=== PATIENT | female | born 1960 | race African-American/Black ===

== ENCOUNTER 2017-04-15 13:15 | Emergency (ER) | payer OTHER ==
[~2017-04-15] VITALS: Ht 167.6 cm; Wt 120.0 kg
[2017-04-15 13:19] VITALS: BP 198/116; PULSE 86; RESP 14; TEMP 98.8; O2SAT 98
--- NOTE | 2017-04-15 14:05 | RADRPT ---
EXAM DATE/TIME: 04/15/2017 13:56 [facility] COMPARISON: No previous studies available for comparison. INDICATIONS : Right wrist pain, fell MEDICAL HISTORY : None. SURGICAL HISTORY : None. ENCOUNTER: Initial ACUITY: 1 day PAIN SCORE: 10/10 LOCATION: Right Wrist FINDINGS: 3 views of the right wrist reveal an acute comminuted fracture involving the distal radial metaphysis . There is radial and dorsal displacement of the distal fracture fragment and carpus. The carpus guy ins in contact with the radial articular surface. The ulna is intact. Dorsal soft tissue swelling not ed. CONCLUSION: Acute distal radial fracture as detailed above. Abran Izquierdo Jr., MD on April 15, 2017 at 14:01 Board Certified Radiologist. This report was verified electronically.
--- NOTE | 2017-04-15 14:40 | PD ---
HPI Chief Complaint: Injury Time Seen by Provider: 14:17 Travel History International Travel<30 days: No Contact w/Intl Traveler<30days: No Traveled to known affect area: No History of Present Illness HPI 57 year old female presents after suffering a ground level fall. She states that she was folding up and air mattress when she lost her balance and fell backwards onto her right hand. She felt immediate pain and had swelling. She proceeded to ice and elevate it and came to the ED. She denies hitting her head or loss of consciousness. She had no chest pain or palpitations preceding the incident. PFSH Past Medical History Medical History: Denies Significant Hx ?: Not Past Surgical History Narrative Surgical Chest surgery Social History Tobacco Use: No Allergies-Medications (Allergen,Severity, Reaction): Coded Allergies: No Known Allergies (Unverified , 04/15/17) Reported Meds & Prescriptions Reported Meds & Active Scripts Active Warba (Hydrocodone-Acetaminophen) 5 Mg-325 Mg Tab 1 Tab PO Q6H PRN Review of Systems Except as stated in HPI: all other systems reviewed are Neg Eyes: No: Diploplia, Blurred Vision HENT: No: Headaches, Vertigo, Lightheadedness Cardiovascular: No: Chest Pain or Discomfort, Palpitations Respiratory: No: Shortness of Breath Gastrointestinal: No: Nausea, Vomiting, Diarrhea, Abdominal Pain, Hematemesis, Hematochezia, Constipation, Changes in Bowel Habits, Indigestion, Dysphagia, Loss of Appetite, Other Genitourinary: No: Urgency, Frequency, Dysuria, Nocturia, Hematuria, Decreased Urinary Output, Oliguria, Hesitancy, Dribbling, Incontinence, Pelvic Pain, Flank Pain, Dyspareunia, Discharge, Dysmenorrhea, Menorrhagia, Metorrhagia, Vaginal Bleeding, Other Musculoskeletal: Positive: Limited ROM (R wrist), Edema (R wrist), Pain (R hand / Wrist) Neurologic: No: Weakness, Dizziness, Syncope Physical Exam Narrative GENERAL: patient is laying in bed in no acute distress SKIN: Warm and dry. HEAD: Atraumatic. Normocephalic. EYES: Pupils equal and round. No scleral icterus. No injection or drainage. ENT: No nasal bleeding or discharge. Mucous membranes pink and moist. NECK: Trachea midline. No JVD. CARDIOVASCULAR: Regular rate and rhythm. RESPIRATORY: No accessory muscle use. Clear to auscultation. Breath sounds equal bilaterally. GASTROINTESTINAL: Abdomen soft, non-tender, nondistended. Hepatic and splenic margins not palpable. MUSCULOSKELETAL: Extremities without clubbing, cyanosis. R wrist has obvious deformity with swelling. Her ROM is limited due to pain. She is neurovascularly intact in the R wrist and hand. NEUROLOGICAL: Awake and alert. No obvious cranial nerve deficits. Motor grossly within normal limits. Five out of 5 muscle strength in the arms and legs. Normal speech. PSYCHIATRIC: Appropriate mood and affect; insight and judgment normal. Data Data Last Documented VS Vital Signs Date Time Temp Pulse Resp B/P (MAP) Pulse Ox O2 Delivery O2 Flow Rate FiO2 04/15/17 19:08 87 16 182/68 (106) 99 04/15/17 13:19 98.8 Orders Orders Wrist, Complete (Kbi4xsm) (04/15/17 ) Lidocaine 1% Inj (50 Ml) (Xylocaine 1% I (04/15/17 15:00) Wrist, Limited (Ap&Lat) (04/15/17 ) Splinting (04/15/17 ) Wrist, One View (04/15/17 ) Sling Cradle Arm (04/15/17 ) Fiberglass Sugartong Sp Ad Arm (04/15/17 ) Ed Discharge Order (04/15/17 18:48) [facility] Medical Decision Making Medical Screen Exam Complete: Yes Emergency Medical Condition: Yes Differential Diagnosis Right Distal Radius fracture, Wrist sprain, Wrist strain, DRUJ disruption, Ulnar fracture Narrative Course X-Ray R wrist, Closed reduction with hematoma block at bedside in the emergency department. Patient was then discussed with Dr. Alvares who recommends outpatient follow-up this time given fairly good alignment of the fragments. Patient was placed in a sugar tong splint. She is stable for discharge Diagnosis Primary Impression: Distal radius fracture, right Referrals: Johnson Naqvi Jr., MD Additional Instructions: Please call Dr. Alvares tomorrow for a follow-up appointment next week. Med/Other Pt SpecificInfo: Prescription(s) given Scripts Hydrocodone-Acetaminophen (Warba) 5 Mg-325 Mg Tab 1 TAB PO Q6H Y for PAIN, #20 TAB 0 Refills Prov: Tristen Sharif MD 04/15/17 Disposition: 01 DISCHARGE HOME Condition: Stable Tristen Sharif MD Apr 15, 2017 14:40
[2017-04-15] MEDS ORDERED: LIDOCAINE HCL 1% 50 ML VIAL INFIL ONE (15:00)
--- NOTE | 2017-04-15 15:51 | RADRPT ---
EXAM DATE/TIME: 04/15/2017 15:39 [facility] COMPARISON: WRIST RIGHT COMPLETE ([id number]), April 15, 2017, 13:56. INDICATIONS : Post reduction of the right distal radial fracture. MEDICAL HISTORY : None. SURGICAL HISTORY : None. ENCOUNTER: Subsequent ACUITY: 1 day PAIN SCORE: 8/10 LOCATION: Right wrist. FINDINGS: 2 views of the right wrist were obtained and again demonstrate a comminuted fracture deformity of the distal radius. The previously noted dorsal angulation of the distal fracture fragment has been reduc ed. Mild residual dorsal displacement of the fracture fragment remains measuring up to approximate 7- 8 mm. There is mild residual impaction remaining. The distal ulna is intact. The carpal bones remain intact with mild degenerative change. The fine bony detail is obscured by overlying casting material. There is overlying soft tissue swelling. CONCLUSION: Post reduction exam with improvement in alignment. Kirill Gamboa MD on April 15, 2017 at 15:47 Board Certified Radiologist. This report was verified electronically.
[2017-04-15] MEDS ORDERED: NORC5TAB PO (18:48)
--- NOTE | 2017-04-15 18:49 | RADRPT ---
EXAM DATE/TIME: 04/15/2017 17:58 [facility] COMPARISON: WRIST RIGHT COMPLETE ([id number]), April 15, 2017, 13:56. WRIST RIGHT LIMITED(AP & LAT), March, 15:39. INDICATIONS : Post reduction. MEDICAL HISTORY : None. SURGICAL HISTORY : None. ENCOUNTER: Subsequent ACUITY: 1 day PAIN SCORE: 10/10 LOCATION: Right wrist. FINDINGS: A single lateral view of the right wrist is been performed. The distal radial fragment appears dorsal ly displaced by approximately 9 mm radiocarpal joint appears aligned. The patient appears to be a valent[place] t. CONCLUSION: Distal radial fracture with dorsal displacement of the distal fragment. Gerardo Galindo MD on April 15, 2017 at 18:45 Board Certified Radiologist. This report was verified electronically.
[2017-04-15 19:08] VITALS: BP 182/68
== END 2017-04-15 19:33 | disposition home or self-care (01) ==
LOC: NEPC 13:15
DX: S52.501A Unspecified fracture of the lower end of right radius, initial encounter for closed fracture (principal); W18.30XA Fall on same level, unspecified, initial encounter; Y93.89 Activity, other specified
CPT/HCPCS: 25605; 29105; 73100; 73110